=== PATIENT | male | born 1995 | race Caucasian/White ===

== ENCOUNTER 2022-03-26 02:57 | Emergency (ER) | payer OTHER ==
[~2022-03-26] VITALS: Ht 165.1 cm; Wt 68.0 kg
[~2022-03-26 02:57] MED LIST: PROCODE120 PO; RXPROCODSY PO
== END 2022-03-26 04:32 | disposition home or self-care (01) ==
LOC: ER 02:57
DX: T65.891A Toxic effect of other specified substances, accidental (unintentional), initial encounter (principal)
CPT/HCPCS: 99283